=== PATIENT | male | born 1965 | race Caucasian/White ===

== ENCOUNTER 2021-08-05 09:47 | Day surgery (SDC) | payer OTHER ==
[2021-08-03 16:35] VITALS: BMI 34.8
[2021-08-05 12:23] VITALS: TEMP 98
[2021-08-05 12:24] VITALS: BP 130/70; PULSE 70
== END 2021-08-05 12:15 | disposition home or self-care (01) ==
LOC: FASU-ENDO 09:47
PROVIDERS: ATTEND Internal Medicine Gastroenterology
PROC: 0DBL8ZX Excision of Transverse Colon, Via Natural or Artificial Opening Endoscopic, Diagnostic (ICD-10-PCS; principal; 2021-08-05 11:11)
DX: Z86.010 Personal history of colon polyps (principal); D12.3 Benign neoplasm of transverse colon; K64.0 First degree hemorrhoids
CPT/HCPCS: 88305-TC